=== PATIENT | male | born 1935 | race American Indian/Alaskan Native ===

== ENCOUNTER 2019-09-08 14:36 | Inpatient (IN) | payer OTHER, MEDICARE, BC ==
[~2019-09-08] VITALS: Ht 172.7 cm; Wt 106.6 kg
[~2019-09-08 14:36] MED LIST: ASPI81CH PO; DOCU100 PO; FOLI1 PO; GLIP10 PO; LISI20 PO; METF500 PO; Mag-G500 MG PO; OXYACE5T PO; SERT25 PO; Super B With V1 EACH PO; TRAM50 PO; Zantac150 MG PO
[2019-09-08 15:27] LABS: BASOPHILS ABSOLUTE AUTO 0.03 K/mm3 (0.00-0.23); BASOPHILS PERCENT AUTO 0 % (0-2); EOSINOPHILS PERCENT AUTO 1 % (0-6); Hematocrit 22.3 % (37.0-53.0); Hemoglobin 6.3 g/dL (13.5-17.5); IMMATURE GRAN ABSOLUTE AUTO 0.04 K/mm3 (0.00-0.10); IMMATURE GRAN PERCENT AUTO 1 % (0-1); LYMPHOCYTES ABSOLUTE AUTO 1.14 K/mm3 (0.84-5.20); LYMPHOCYTES PERCENT AUTO 14 % (21-46); MONOCYTES ABSOLUTE AUTO 0.67 K/mm3 (0.16-1.47); MONOCYTES PERCENT AUTO 8 % (4-13); Mean Corpuscular HGB 22.4 pg (26.0-34.0); Mean Corpuscular HGB Conc 28.3 g/dL (31.5-36.5); Mean Corpuscular Volume 79 fL (80-100); Mean Platelet Volume 9.4 fL (9.1-12.4); NEUTROPHILS ABSOLUTE AUTO 6.29 K/mm3 (1.96-9.15); NEUTROPHILS PERCENT AUTO 76 % (41-73); NRBC ABSOLUTE 0.06 K/mm3 (0.00-0.02); NRBC Auto 0.7 /100 WBC (0.0-0.2); Platelet Count 272 K/mm3 (150-400); RDW Standard Deviation 49.2 fL (35.1-46.3); Red Blood Cell Count 2.81 M/mm3 (4.30-5.90); White Blood Cell Count 8.27 K/mm3 (4.00-11.30)
[2019-09-08 15:47] LABS: Albumin, Blood 3.1 g/dL (3.4-5.0); Albumin/Globulin Ratio 0.8 (0.8-1.8); Bilirubin, Total 0.3 mg/dL (0.1-1.0); Calcium, Blood 8.3 mg/dL (8.5-10.1); Creatinine, Blood 2.83 mg/dL (0.60-1.20); Globulin, Blood 3.7 g/dL (2.2-4.0); Potassium, Blood 5.4 mmol/L (3.5-5.5); Total Protein, Blood 6.8 g/dL (6.4-8.2)
[2019-09-08] MEDS ORDERED: PRAMIPEXOLE D0.25 M1 PO (16:07)
[2019-09-08] MEDS ORDERED: Nifediac Cc60 MG PO (16:08)
[2019-09-08] MEDS ORDERED: Simvastatin40 MG PO (16:09)
[2019-09-08] MEDS ORDERED: Ropinirole HCl2 MG PO ×2 (16:10)
[2019-09-08] MEDS ORDERED: LOSA25 PO (16:11)
[2019-09-08] MEDS ORDERED: Ventolin/Prove6.7 GM INH (16:11)
[2019-09-08] MEDS ORDERED: STIOLTO RESPIMAT4 GM INH (16:12)
[2019-09-08] MEDS ORDERED: Aspir 8181 MG PO (16:12)
[2019-09-08] MEDS ORDERED: NOVOLOG FL100 UNIT/1 SC (16:14)
[2019-09-08] MEDS ORDERED: BASAGLAR K100 UNIT/1 SC (16:14)
[2019-09-08 16:31] LABS: International Normalized Ratio 1.15
[2019-09-08] MEDS ORDERED: CO Q-10 PO (17:07)
[2019-09-08] MEDS ORDERED: DOCU100 PO (17:08)
[2019-09-08] MEDS ORDERED: FERSU300 PO (17:09)
[2019-09-08] MEDS ORDERED: HYDCHL25 PO (17:11)
[2019-09-08] MEDS ORDERED: FURO20 PO (17:11)
[2019-09-08] MEDS ORDERED: NITR.4SL SL (17:13)
[2019-09-08] MEDS ORDERED: MELA3 PO (17:15)
--- NOTE | 2019-09-08 18:52 | NUR ---
PT ARRIVAL. PT ARRIVED VIA [place] [facility]. PT WAS ABLE TO SELF TRANSFER FROM [place] [facility] TO BED. PT BECAME SOB WITH THIS ACTIVITY. PT IS ON 4L NC WITH O2 SATS >93%, PT'S BASELINE IS RA. PT DENIES CHEST PAIN/PRESSURE AT THIS TIME. PT DENIES ABD PAIN AT THIS TIME. PT'S HR IS IN THE 40'S HE IS IN A JUNCTIONAL W/PVCS AND PACS. PT STATES THIS IS ABNORMAL FOR HIM PER THE PT "I HAVE ALWAY HAD A NORMAL HR". PT IS TO HAVE 2UNITS OF PRBC PER PROVIDER HE IS TO HAVE LASIX BETWEEN UNITS. WILL CONTINUE TO MONITOR.
--- NOTE | 2019-09-08 22:45 | NUR ---
PROVIDER CONTACTED PT WITH ELEVATED TROPONIN OF 0.554. PT DENIES CHEST PAIN AND DYSPNEA . REPORTS THAT HE IS FEELING MUCH BETTER THAN HE WAS PRIOR TO ARRIVAL. PROVIDER, BORIS ARCE, CONTACTED. PROVIDER TO DEPARTMENT TO REVIEW CHART, INITIAL EKG AND CURRENT TELEMETRY READING. PT CASE DISCUSSED AND DETERMINATION IS TO MONITOR CLOSELY AND REPEAT TROPONIN AT 0400. IF TROP CONTINUES TO ELEVATE, PLAN IS TO CYCLE TROPONINS Q8 UNTIL THEY START TO TREND DOWNWARD AND MONITOR FOR CHANGES IN PATIENT CONDITION. PT IS CURRENTLY RESTING COMFORTABLY IN BED AND ASSYMPTOMATIC. NURSE NOTIFY INPUT FOR VERBAL ORDERS. WILL CONTINUE WITH MONITORING.
[2019-09-09 00:16] LABS: Source, Urine Clean Catch
[2019-09-09 00:21] LABS: Blood, Urine Neg (Neg); Glucose Qualitative, Urine Neg (Neg); Ketones, Urine 1+ (Neg); Leukocyte Esterase, Urine 1+ (Neg); Nitrite, Urine Neg (Neg); Protein, Urine 3+ (Neg); Urobilinogen, Urine 1+ (Normal)
[2019-09-09 00:24] LABS: Appearance, Urine Clear (Clear); Bilirubin, Urine 1+ (Neg); Color, Urine Amber (P-Yellow)
[2019-09-09 00:30] LABS: Red Blood Cells, Urine 0-2 /hpf (0-2); Squamous Epithelial Cells Not Seen /hpf (Few)
[2019-09-09 00:31] LABS: Bacteria Mod /hpf; Hyaline Casts 25-50 /lpf (0-2)
[2019-09-09 04:39] LABS: BASOPHILS ABSOLUTE AUTO 0.03 K/mm3 (0.00-0.23); BASOPHILS PERCENT AUTO 0 % (0-2); EOSINOPHILS ABSOLUTE AUTO 0.11 K/mm3 (0.00-0.68); EOSINOPHILS PERCENT AUTO 2 % (0-6); Hematocrit 26.1 % (37.0-53.0); Hemoglobin 7.9 g/dL (13.5-17.5); IMMATURE GRAN ABSOLUTE AUTO 0.03 K/mm3 (0.00-0.10); IMMATURE GRAN PERCENT AUTO 0 % (0-1); LYMPHOCYTES ABSOLUTE AUTO 1.01 K/mm3 (0.84-5.20); LYMPHOCYTES PERCENT AUTO 15 % (21-46); MONOCYTES ABSOLUTE AUTO 0.33 K/mm3 (0.16-1.47); MONOCYTES PERCENT AUTO 5 % (4-13); Mean Corpuscular HGB 24.2 pg (26.0-34.0); Mean Corpuscular HGB Conc 30.3 g/dL (31.5-36.5); Mean Corpuscular Volume 80 fL (80-100); Mean Platelet Volume 9.3 fL (9.1-12.4); NEUTROPHILS ABSOLUTE AUTO 5.21 K/mm3 (1.96-9.15); NEUTROPHILS PERCENT AUTO 78 % (41-73); NRBC ABSOLUTE 0.03 K/mm3 (0.00-0.02); NRBC Auto 0.4 /100 WBC (0.0-0.2); Platelet Count 222 K/mm3 (150-400); RDW Standard Deviation 50.2 fL (35.1-46.3); Red Blood Cell Count 3.27 M/mm3 (4.30-5.90); White Blood Cell Count 6.72 K/mm3 (4.00-11.30)
[2019-09-09 05:05] LABS: Magnesium, Blood 2.5 mg/dL (1.6-2.4)
[2019-09-09 05:06] LABS: Albumin/Globulin Ratio 0.8 (0.8-1.8); Bilirubin, Total 0.5 mg/dL (0.1-1.0); Bun/Creatinine Ratio 19.3 (12.0-20.0); Calcium, Blood 8.1 mg/dL (8.5-10.1); Creatinine, Blood 2.74 mg/dL (0.60-1.20); Globulin, Blood 3.6 g/dL (2.2-4.0); Potassium, Blood 4.3 mmol/L (3.5-5.5); Total Protein, Blood 6.6 g/dL (6.4-8.2)
[2019-09-09 05:10] LABS: Troponin I 0.539 ng/mL (0.000-0.040)
--- NOTE | 2019-09-09 06:22 | NUR ---
SHIFT SUMMARY PT HAS REMAINED AOX4 THROUGHOUT SHIFT. VSS. PLEASANT AND COOPERATIVE WITH CARE. PT CONTINUES TO AMBULATE WITH ONE PERSON ASSIST TO RESTROOM. PT GIVEN TWO UNITS PRBCs THROUGHOUT THE NIGHT WITH ONE DOSE OF LASIX GIVEN IN BETWEEN UNITS PER PHYSICIAN ORDERS. PT TOLERATED WELL, NO TRANSFUSION REACTION, NO CHANGES TO LUNG SOUNDS. O2 SATS HAVE REMAINED >90% ON 2L VIA NASAL CANNULA. PT REPORTS IMPROVEMENT IN RESPIRATORY EFFORT. PT BECAME DYSPNEIC ON EXERTION, BUT O2 SATS REMAINED >90% WITH DYSPNEA. TROPONIN STARTING TO TREND DOWN THIS AM, NO FURTHER LAB DRAWS PLACED, PER PROVIDER VERBAL ORDER. PT PROTONIX DRIP DISCONTINUED AND BID ORDERS TO BE FOLLOWED PER ADMITTING PHYSICIAN. NO OTHER CHANGES NOTED FROM INITIAL ASSESSMENT. WILL CONTINUE TO MONITOR AND REPORT TO ONCOMING SHIFT RN. BED IN LOW POSITION, CALL LIGHT IN REACH.
--- NOTE | 2019-09-09 09:00 | NUR ---
PARTIAL ECHO COMPLETE
--- NOTE | 2019-09-09 18:37 | NUR ---
SHIFT SUMMARY PT REPORTED AN OVERALL "FEELING BETTER" TODAY. HE FEELS THAT THE BLOOD TRANSFUSION MADE A DIFFERENCE. INITIALLY PT WAS NPO WITH LOWER CBG'S AND IVF WERE ORDERED BY HOSPITALIST TO KEEP CBG FROM DROPPING TO LOW. DR PRUITT CALLED AND CHANGED PT'S DIET ORDER TO CLEARS AND TO NOT START THE IVF. DR PRUITT WAS ABLE TO SEE PT'S THIS EVENING. PT IS PLANNED TO HAVE ENDOSCOPE TOMORROW AFTERNOON/EVENING. PT IS TO BE MADE NPO AFTER LUNCH TOMORROW 09/10. DR LARIOS FROM CARDIOLOGY ALSO VISITED PT THIS EVENING R/T ELEVATED TROPONINS, CURRENT PLAN IS TO HAVE PT FOLLOW-UP OUTPATIENT WITH CARDIOLOGY. TELEMETRY SHOWED PT TO BE IN SINUS PHILIP 50'S TO SINUS RHYTHM. PT HAD INCREASED SBP'S TODAY AND PRN HYDRALAZINE WAS ADDED IN. PT HAD ENOUGH ENERGY THIS EVENING TO AMBULATE IN THE HALLS.
--- NOTE | 2019-09-09 20:30 | NUR ---
PT RESTING IN BED. DENIES PAIN, N/V AND SOB. HELD LANTUS DUE TO CBG 108. PT STATES HE IS NOT USUALLY THAT LOW AND HE HAD EATEN A FULL DINNER PLUS HIS CLEAR LIQUID TRAY. WILL ONLY BE ON CLEAR LIQUIDS UNTIL TOMORROW AT NOON. NO SIGN OF DISTRESS.
--- NOTE | 2019-09-10 00:30 | NUR ---
PT UP WALKING IN THE SAINZ INDEP. NO SIGN OF DISTRESS.
[2019-09-10 04:21] LABS: BASOPHILS ABSOLUTE AUTO 0.04 K/mm3 (0.00-0.23); BASOPHILS PERCENT AUTO 1 % (0-2); EOSINOPHILS ABSOLUTE AUTO 0.41 K/mm3 (0.00-0.68); EOSINOPHILS PERCENT AUTO 6 % (0-6); Hematocrit 29.8 % (37.0-53.0); Hemoglobin 8.5 g/dL (13.5-17.5); IMMATURE GRAN ABSOLUTE AUTO 0.03 K/mm3 (0.00-0.10); IMMATURE GRAN PERCENT AUTO 1 % (0-1); LYMPHOCYTES ABSOLUTE AUTO 0.66 K/mm3 (0.84-5.20); LYMPHOCYTES PERCENT AUTO 10 % (21-46); MONOCYTES PERCENT AUTO 6 % (4-13); Mean Corpuscular HGB 23.2 pg (26.0-34.0); Mean Corpuscular HGB Conc 28.5 g/dL (31.5-36.5); Mean Corpuscular Volume 81 fL (80-100); Mean Platelet Volume 9.3 fL (9.1-12.4); NEUTROPHILS ABSOLUTE AUTO 4.85 K/mm3 (1.96-9.15); NEUTROPHILS PERCENT AUTO 76 % (41-73); NRBC ABSOLUTE 0.03 K/mm3 (0.00-0.02); NRBC Auto 0.5 /100 WBC (0.0-0.2); Platelet Count 228 K/mm3 (150-400); RDW Coefficient Variation 20.1 % (11.7-14.2); RDW Standard Deviation 53.1 fL (35.1-46.3); Red Blood Cell Count 3.66 M/mm3 (4.30-5.90); White Blood Cell Count 6.39 K/mm3 (4.00-11.30)
[2019-09-10 04:43] LABS: Albumin, Blood 2.8 g/dL (3.4-5.0); Albumin/Globulin Ratio 0.8 (0.8-1.8); Bilirubin, Total 0.4 mg/dL (0.1-1.0); Bun/Creatinine Ratio 21.4 (12.0-20.0); Calcium, Blood 8.1 mg/dL (8.5-10.1); Creatinine, Blood 2.1 mg/dL (0.60-1.20); Globulin, Blood 3.6 g/dL (2.2-4.0); Potassium, Blood 3.5 mmol/L (3.5-5.5); Total Protein, Blood 6.4 g/dL (6.4-8.2)
--- NOTE | 2019-09-10 06:15 | NUR ---
SUMMARY PT RESTING IN BED. A/O X4. INDEP IN ROOM. NO SIGNS OF BLEEDING DURING THIS SHIFT. GAVE HYDRALAZINE 1X FOR HTN. NO SIGN OF DISTRESS.
--- NOTE | 2019-09-10 08:37 | NUR ---
Pt denies any bowel movements, tolerated cle3ar liquid breakfast and has no complaints this morning, other than painful IV on the left wrist. This was discontinued when it was also noted that it was leaking when attempted to flush the IV with normal saline.
[2019-09-10 10:07] LABS: HBSAG SCREEN Negative (Negative); HEP A AB, IGM Negative (Negative); HEP B CORE AB, IGM Negative (Negative); HEP C VIRUS AB 0.1 (0.0-0.9)
[2019-09-10 11:02] LABS: Percent Saturation 5.2 % (20.0-50.0)
--- NOTE | 2019-09-10 16:42 | NUR ---
09/10/19 1642 Joselyn Keys MAC CASE WITH DR. POLO. SEE ANETHESIA RECORD FOR CARE
--- NOTE | 2019-09-10 17:22 | NUR ---
The pt returned from the EGD, escorted by THAD Ocasio. Devan is awake, oriented, and conversant. Stand by assistance for ambulation into the bathroom to have a bm. No c/o pain or other discomfort.
--- NOTE | 2019-09-10 18:28 | NUR ---
The pt had no pain or discomfort following the EGD. Dr. Robertson here to see him soon after his return to PCU 6. The pt stated he had an urge to have a bowel movement, but did not. No difficulty ambulating to the bathroom and back to bed. Sitting on the side of the bed, eating dinner this evening and tolerating a cardiac/ADA diet well.
[2019-09-11 03:56] LABS: Hematocrit 32.9 % (37.0-53.0); Hemoglobin 9.4 g/dL (13.5-17.5); Mean Corpuscular HGB Conc 28.6 g/dL (31.5-36.5); Mean Corpuscular Volume 80 fL (80-100); Platelet Count 239 K/mm3 (150-400); RDW Coefficient Variation 20.2 % (11.7-14.2); RDW Standard Deviation 55.7 fL (35.1-46.3); Red Blood Cell Count 4.09 M/mm3 (4.30-5.90); White Blood Cell Count 6.06 K/mm3 (4.00-11.30)
[2019-09-11 04:16] LABS: Albumin, Blood 3.1 g/dL (3.4-5.0); Anion Gap 6 mmol/L (6-16); Blood Urea Nitrogen 33 mg/dL (8-24); Bun/Creatinine Ratio 19.3 (12.0-20.0); CO2, Blood 27 mmol/L (21-32); Calcium, Blood 8.7 mg/dL (8.5-10.1); Chloride, Blood 110 mmol/L (98-108); Creatinine, Blood 1.71 mg/dL (0.60-1.20); Glomerular Filtration Rate 41 (60-); Glucose, Blood 90 mg/dL (70-99); Potassium, Blood 3.7 mmol/L (3.5-5.5); Sodium, Blood 143 mmol/L (136-145)
--- NOTE | 2019-09-11 06:55 | NUR ---
a+o, able to make needs known, wants to change rls medication, call light in reach, able to make needs known, continued to monitor and treat until bsr was shared with pt and day staff, deisy waters locked
[2019-09-11 13:14] LABS: Albumin, Blood 3.2 g/dL (3.4-5.0); Albumin/Globulin Ratio 0.8 (0.8-1.8); Bilirubin, Direct 0.2 mg/dL (0.0-0.3); Bilirubin, Indirect 0.2 mg/dL (0.1-0.7); Bilirubin, Total 0.4 mg/dL (0.1-1.0); Globulin, Blood 4.2 g/dL (2.2-4.0); Total Protein, Blood 7.4 g/dL (6.4-8.2)
--- NOTE | 2019-09-11 17:37 | NUR ---
SHIFT SUMMARY PT'S STATUS CHANGED THIS AFTERNOON FROM PCU TO MEDICAL. PT COMPLETED 2ND PORTION ON LEXISCAN TODAY. PT BECAME HYPERTENSIVE THIS AFTERNOON AND WAS TREATED ONCE WITH PRN HYDRALAZINE. PT C/O HIS LEGS FEELING VERY RESTLESS AND HAS BEEN AMBULATIN IN THE HALLS INDEPENTLY TO HELP. PT DID RECEIVE HIS NORMAL RESTLESS LEG MEDICATIONS. PT HAS TOLERATED AMBULATION WITHOUT ANY COMPLAINTS. GI SAW THIS AFTERNOON AND STATED, PT IS OKAY TO D/C FROM THEIR STANDPOINT AND TO HAVE HIM FOLLOW UP IN COUPLE OF WEEKS. TELEMETRY HAS SHOWN PT IN A SINUS RHYTHM THROUGHOUT THE DAY. PT VOICED HIS WISHES TO GO HOME TODAY, DISCUSSED WITH HOSPITALIST AND PLANS TO D/C PT TOMORROW. UPDATED PT ON HOSPITALIST WISHES.
--- NOTE | 2019-09-12 07:42 | NUR ---
SUMMARY PT SLEPT POORLY. THIS AM DID FINALLY GET SOME SLEEP. W/A TALKS OF SON THAT ON Saturday, WHICH MAY HAVE CAUSED POOR SLEEP.PT HOPING FOR DISCHARGE HOME TODAY.
[2019-09-12 09:14] LABS: Albumin, Blood 3.2 g/dL (3.4-5.0); Albumin/Globulin Ratio 0.8 (0.8-1.8); Bilirubin, Total 0.4 mg/dL (0.1-1.0); Bun/Creatinine Ratio 20.1 (12.0-20.0); Calcium, Blood 8.8 mg/dL (8.5-10.1); Creatinine, Blood 1.79 mg/dL (0.60-1.20); Globulin, Blood 4.1 g/dL (2.2-4.0); Potassium, Blood 3.9 mmol/L (3.5-5.5); Total Protein, Blood 7.3 g/dL (6.4-8.2)
[2019-09-12] MEDS ORDERED: ASCO500 PO (11:26)
--- NOTE | 2019-09-12 12:04 | NUR ---
DISCHARGE INSTRUCTIONS GONE OVER WITH PT. INSTRUCTED PT ON FOLLOW VISITS WHAT HE NEEDS TO BRING AND DO FOR THE FOLLOW UPS. INSTRUCTED PT ON HOME MEDICATIONS INCLUDING CHANGES TO MEDS. PT STATED UNDERSTANDING. ALL BELONGINGS GATHERED AND GIVEN TO PT. PT AMUBLATED OUT OF FACILITY ESCORTED BY FAMILY.
[2019-09-16] MEDS ORDERED: ROPINIROLE HCL2 M1 PO (22:55)
[2019-09-18] MEDS ORDERED: NIFE90ER PO (15:19)
== END 2019-09-12 12:00 | disposition home or self-care (01) | DRG 377 ==
LOC: ER 14:36 → PCU 16:29
PROVIDERS: Emergency Medicine; Internal Medicine; Student in an Organized Health Care Education/Training Program; ADMIT Family Medicine
PROC: 0DB68ZX Excision of Stomach, Via Natural or Artificial Opening Endoscopic, Diagnostic (ICD-10-PCS; 2019-09-10)
PROC: 0DB98ZX Excision of Duodenum, Via Natural or Artificial Opening Endoscopic, Diagnostic (ICD-10-PCS; principal; 2019-09-10 12:45)
PROC: 0DB78ZX Excision of Stomach, Pylorus, Via Natural or Artificial Opening Endoscopic, Diagnostic (ICD-10-PCS; 2019-09-10 12:45)
PROC: 30233N1 Transfusion of Nonautologous Red Blood Cells into Peripheral Vein, Percutaneous Approach (ICD-10-PCS; 2019-09-11)
DX: K92.2 Gastrointestinal hemorrhage, unspecified (principal); I50.33 Acute on chronic diastolic (congestive) heart failure; I21.A1 Myocardial infarction type 2; N17.9 Acute kidney failure, unspecified; I13.0 Hypertensive heart and chronic kidney disease with heart failure and stage 1 through stage 4 chronic kidney disease, or unspecified chronic kidney disease; E11.22 Type 2 diabetes mellitus with diabetic chronic kidney disease; N18.3 Chronic kidney disease, stage 3 (moderate); D63.1 Anemia in chronic kidney disease; Z79.4 Long term (current) use of insulin; D50.0 Iron deficiency anemia secondary to blood loss (chronic); R74.0 Nonspecific elevation of levels of transaminase and lactic acid dehydrogenase [LDH]; G25.81 Restless legs syndrome; E11.42 Type 2 diabetes mellitus with diabetic polyneuropathy; I25.10 Atherosclerotic heart disease of native coronary artery without angina pectoris; I27.20 Pulmonary hypertension, unspecified; J44.9 Chronic obstructive pulmonary disease, unspecified
CPT/HCPCS: 36415; 36430; 71046; 76705; 78452; 80053; 80069; 80074; 80076; 81001; 82272; 82607; 82728; 82746; 82947; 83540; 83550; 83735; 83880; 84484; 85025; 85027; 85610; 85730; 86850; 86900; 86901; 86923; 87086; 88305; 88342; 93005; 93010; 93017; 93308; 93321; 94640; 94760; 96365; 96366; 96376; 97165; 99285-25; A9500; C9113; J0360; J0706; J1815; J1940; J2250; J2704; J2785; J7030; J7120; P9016

== ENCOUNTER 2020-11-25 14:26 | Emergency (ER) | payer OTHER, BC ==
[~2020-11-25] VITALS: Ht 172.7 cm; Wt 106.1 kg
[~2020-11-25 14:26] MED LIST changes: +ASCO500 PO; +BASAGLAR K100 UNIT/1 SC; +CO Q-10 PO; +FERSU300 PO; +HYDCHL25 PO; +MELA3 PO; +NITR.4SL SL; +NOVOLOG FL100 UNIT/1 SC; +Nifediac Cc60 MG PO; +ROPINIROLE HCL2 M1 PO; +Ropinirole HCl2 MG PO; +Simvastatin40 MG PO
[2020-11-25 15:18] LABS: BASOPHILS ABSOLUTE AUTO 0.03 K/mm3 (0.00-0.23); BASOPHILS PERCENT AUTO 1 % (0-2); EOSINOPHILS ABSOLUTE AUTO 0.08 K/mm3 (0.00-0.68); EOSINOPHILS PERCENT AUTO 2 % (0-6); Hematocrit 26.1 % (37.0-53.0); Hemoglobin 7.5 g/dL (13.5-17.5); IMMATURE GRAN ABSOLUTE AUTO 0.01 K/mm3 (0.00-0.10); IMMATURE GRAN PERCENT AUTO 0 % (0-1); LYMPHOCYTES ABSOLUTE AUTO 0.34 K/mm3 (0.84-5.20); LYMPHOCYTES PERCENT AUTO 8 % (21-46); MONOCYTES ABSOLUTE AUTO 0.35 K/mm3 (0.16-1.47); MONOCYTES PERCENT AUTO 8 % (4-13); Mean Corpuscular HGB 26.1 pg (26.0-34.0); Mean Corpuscular HGB Conc 28.7 g/dL (31.5-36.5); Mean Corpuscular Volume 91 fL (80-100); Mean Platelet Volume 9.3 fL (9.1-12.4); NEUTROPHILS ABSOLUTE AUTO 3.39 K/mm3 (1.96-9.15); NEUTROPHILS PERCENT AUTO 81 % (41-73); Platelet Count 169 K/mm3 (150-400); RDW Coefficient Variation 15.2 % (11.7-14.2); RDW Standard Deviation 50.6 fL (35.1-46.3); Red Blood Cell Count 2.87 M/mm3 (4.30-5.90)
[2020-11-25] MEDS ORDERED: OMEP20ER PO (15:25)
[2020-11-25] MEDS ORDERED: PRAMIPEXOLE D0.25 M1 PO (15:27)
[2020-11-25] MEDS ORDERED: ISOSORBIDE MONO60 MG PO (15:28)
[2020-11-25] MEDS ORDERED: Aspir 8181 MG PO (15:29)
[2020-11-25] MEDS ORDERED: LOSA25 PO (15:29)
[2020-11-25] MEDS ORDERED: DOXAZOSIN MESYLA2 MG PO (15:30)
[2020-11-25] MEDS ORDERED: NIFE60ER PO (15:31)
[2020-11-25] MEDS ORDERED: ATORVASTATIN CA20 MG PO (15:32)
[2020-11-25] MEDS ORDERED: FUROSEMIDE20 MG PO (15:33)
[2020-11-25] MEDS ORDERED: FURO20 PO (15:33)
[2020-11-25] MEDS ORDERED: ALBU2.5V5 NEB (15:34)
[2020-11-25] MEDS ORDERED: Ventolin/Prove6.7 GM INH (15:36)
[2020-11-25] MEDS ORDERED: STIOLTO RESPIMAT4 G1 INH (15:37)
[2020-11-25 15:44] LABS: Bun/Creatinine Ratio 22.7 (12.0-20.0); Calcium, Blood 8.1 mg/dL (8.5-10.1); Creatinine, Blood 1.94 mg/dL (0.60-1.20); Potassium, Blood 4.3 mmol/L (3.5-5.5); Troponin I 0.069 ng/mL (0.000-0.040)
== END 2020-11-25 16:52 | disposition home or self-care (01) ==
LOC: ER 14:26
PROVIDERS: Emergency Medicine
DX: E16.2 Hypoglycemia, unspecified (principal); D53.9 Nutritional anemia, unspecified; I13.0 Hypertensive heart and chronic kidney disease with heart failure and stage 1 through stage 4 chronic kidney disease, or unspecified chronic kidney disease; E11.22 Type 2 diabetes mellitus with diabetic chronic kidney disease; N18.30 Chronic kidney disease, stage 3 unspecified; I50.9 Heart failure, unspecified; J44.9 Chronic obstructive pulmonary disease, unspecified; E78.5 Hyperlipidemia, unspecified; E11.42 Type 2 diabetes mellitus with diabetic polyneuropathy; Z79.82 Long term (current) use of aspirin; Z79.899 Other long term (current) drug therapy; Z79.4 Long term (current) use of insulin
CPT/HCPCS: 80048; 84484; 85025; 93005; 93010; 99284-25

== ENCOUNTER 2020-12-06 01:17 | Emergency (ER) | payer OTHER, BC ==
[~2020-12-06] VITALS: Ht 172.7 cm; Wt 95.7 kg
[~2020-12-06 01:17] MED LIST changes: +ALBU2.5V5 NEB; +ATORVASTATIN CA20 MG PO; +Aspir 8181 MG PO; +DOXAZOSIN MESYLA2 MG PO; +FURO20 PO; +FUROSEMIDE20 MG PO; +ISOSORBIDE MONO60 MG PO; +LOSA25 PO; +NIFE60ER PO; +OMEP20ER PO; +PRAMIPEXOLE D0.25 M1 PO; +STIOLTO RESPIMAT4 G1 INH; +Ventolin/Prove6.7 GM INH
[2020-12-06 02:58] LABS: BASOPHILS ABSOLUTE AUTO 0.03 K/mm3 (0.00-0.23); BASOPHILS PERCENT AUTO 1 % (0-2); EOSINOPHILS ABSOLUTE AUTO 0.18 K/mm3 (0.00-0.68); EOSINOPHILS PERCENT AUTO 4 % (0-6); Hematocrit 26.1 % (37.0-53.0); Hemoglobin 7.6 g/dL (13.5-17.5); IMMATURE GRAN ABSOLUTE AUTO 0.01 K/mm3 (0.00-0.10); IMMATURE GRAN PERCENT AUTO 0 % (0-1); LYMPHOCYTES ABSOLUTE AUTO 0.64 K/mm3 (0.84-5.20); LYMPHOCYTES PERCENT AUTO 13 % (21-46); MONOCYTES ABSOLUTE AUTO 0.71 K/mm3 (0.16-1.47); MONOCYTES PERCENT AUTO 14 % (4-13); Mean Corpuscular HGB 25.8 pg (26.0-34.0); Mean Corpuscular HGB Conc 29.1 g/dL (31.5-36.5); Mean Corpuscular Volume 89 fL (80-100); NEUTROPHILS ABSOLUTE AUTO 3.35 K/mm3 (1.96-9.15); NEUTROPHILS PERCENT AUTO 68 % (41-73); Platelet Count 195 K/mm3 (150-400); RDW Coefficient Variation 14.7 % (11.7-14.2); RDW Standard Deviation 47.9 fL (35.1-46.3); Red Blood Cell Count 2.95 M/mm3 (4.30-5.90); White Blood Cell Count 4.92 K/mm3 (4.00-11.30)
[2020-12-06 03:11] LABS: Bun/Creatinine Ratio 20.6 (12.0-20.0); Calcium, Blood 8.5 mg/dL (8.5-10.1); Creatinine, Blood 2.09 mg/dL (0.60-1.20); Potassium, Blood 4.7 mmol/L (3.5-5.5); Troponin I 0.107 ng/mL (0.000-0.040)
== END 2020-12-06 06:50 | disposition home or self-care (01) ==
LOC: ER 01:17
PROVIDERS: Student in an Organized Health Care Education/Training Program
DX: R55 Syncope and collapse (principal); R00.1 Bradycardia, unspecified; D64.9 Anemia, unspecified; I11.0 Hypertensive heart disease with heart failure; I50.9 Heart failure, unspecified; E11.9 Type 2 diabetes mellitus without complications; E78.5 Hyperlipidemia, unspecified; Z79.899 Other long term (current) drug therapy; Z79.82 Long term (current) use of aspirin
CPT/HCPCS: 36415; 80048; 84484; 85025; 93005; 93010; 99284-25

== ENCOUNTER 2020-12-12 13:16 | Inpatient (IN) | payer OTHER, MEDICARE, BC ==
[~2020-12-12] VITALS: Ht 172.7 cm; Wt 101.7 kg
[2020-12-12 14:58] LABS: Hematocrit 25.5 % (37.0-53.0); Hemoglobin 7.7 g/dL (13.5-17.5); Mean Corpuscular HGB 26.2 pg (26.0-34.0); Mean Corpuscular HGB Conc 30.2 g/dL (31.5-36.5); Mean Corpuscular Volume 87 fL (80-100); Mean Platelet Volume 10.4 fL (9.1-12.4); NRBC ABSOLUTE 0.02 K/mm3 (0.00-0.02); NRBC Auto 0.4 /100 WBC (0.0-0.2); Platelet Count 218 K/mm3 (150-400); RDW Coefficient Variation 15.5 % (11.7-14.2); RDW Standard Deviation 48.1 fL (35.1-46.3); Red Blood Cell Count 2.94 M/mm3 (4.30-5.90); White Blood Cell Count 5.65 K/mm3 (4.00-11.30)
[2020-12-12 15:22] LABS: BASOPHILS ABSOLUTE MAN 0.05 K/mm3 (0.00-0.23); BASOPHILS PERCENT MAN 1 % (0-2); EOSINOPHILS ABSOLUTE MAN 0.11 K/mm3 (0.00-0.68); EOSINOPHILS PERCENT MAN 2 % (0-6); LYMPHOCYTES PERCENT MAN 9 % (21-46); MONOCYTES ABSOLUTE MAN 0.33 K/mm3 (0.16-1.47); MONOCYTES PERCENT MAN 6 % (4-13); NEUTROPHILS ABSOLUTE MAN 4.63 K/mm3 (1.96-9.15); SEG NEUTROPHILS PERCENT MAN 82 % (41-73); TOTAL CELLS COUNTED 100
[2020-12-12] MEDS ORDERED: BASAGLAR K100 UNIT/1 (15:29)
[2020-12-12] MEDS ORDERED: STRIVERDI RESPIM4 G1 (15:29)
[2020-12-12] MEDS ORDERED: POTA10T PO (15:30)
[2020-12-12 15:52] LABS: Free Thyroxine 1.06 ng/dL (0.70-1.60); Magnesium, Blood 3.3 mg/dL (1.6-2.4); Thyroid Stimulating Hormone 1.55 uIU/mL (0.360-4.800); Troponin I 0.09 ng/mL (0.000-0.040)
[2020-12-12 16:15] LABS: Source, Urine Voided
[2020-12-12 16:27] LABS: Percent Saturation 3.7 % (20.0-50.0)
[2020-12-12 16:44] LABS: Appearance, Urine Clear (Clear); Bilirubin, Urine Neg (Neg); Blood, Urine Neg (Neg); Color, Urine Yellow (P-Yellow); Glucose Qualitative, Urine Neg (Neg); Ketones, Urine Neg (Neg); Leukocyte Esterase, Urine Neg (Neg); Nitrite, Urine Neg (Neg); Protein, Urine 2+ (Neg); Specific Gravity, Urine 1.015 (1.003-1.022); Urobilinogen, Urine NORM (Normal)
[2020-12-12 17:02] LABS: Bacteria Few /hpf; Red Blood Cells, Urine 0-2 /hpf (0-2); Squamous Epithelial Cells Few /hpf (Few)
[2020-12-12 18:26] LABS: Albumin, Blood 3.2 g/dL (3.4-5.0); Anion Gap 11 mmol/L (6-16); Blood Urea Nitrogen 88 mg/dL (8-24); CO2, Blood 19 mmol/L (21-32); Calcium, Blood 8.5 mg/dL (8.5-10.1); Chloride, Blood 110 mmol/L (98-108); Creatinine, Blood 3.82 mg/dL (0.60-1.20); Glomerular Filtration Rate 16 (60-); Glucose, Blood 67 mg/dL (70-99); Potassium, Blood 5.4 mmol/L (3.5-5.5); Sodium, Blood 140 mmol/L (136-145)
[2020-12-12] MEDS ORDERED: Vitamin D2000 UNIT PO (21:02)
[2020-12-12] MEDS ORDERED: Vitamin C100 MG (21:03)
[2020-12-12] MEDS ORDERED: CLON.1 PO (21:05)
[2020-12-12] MEDS ORDERED: DOCU100 PO (21:06)
[2020-12-12] MEDS ORDERED: FERSU300 PO (21:07)
[2020-12-12] MEDS ORDERED: HYDRA50 PO (21:15)
[2020-12-12] MEDS ORDERED: HYDROCORTISONE PR (21:15)
[2020-12-12] MEDS ORDERED: LOSA25 PO (21:16)
[2020-12-13] MEDS ORDERED: ADALAT CC60 MG PO (00:26)
[2020-12-13] MEDS ORDERED: NITR.4SL SL (00:27)
[2020-12-13] MEDS ORDERED: ASPI81CH PO (00:31)
[2020-12-13] MEDS ORDERED: COENZYME Q-1030 MG (00:32)
[2020-12-13 03:09] LABS: BASOPHILS ABSOLUTE AUTO 0.02 K/mm3 (0.00-0.23); BASOPHILS PERCENT AUTO 0 % (0-2); EOSINOPHILS ABSOLUTE AUTO 0.05 K/mm3 (0.00-0.68); EOSINOPHILS PERCENT AUTO 1 % (0-6); Hemoglobin 7.6 g/dL (13.5-17.5); IMMATURE GRAN ABSOLUTE AUTO 0.02 K/mm3 (0.00-0.10); IMMATURE GRAN PERCENT AUTO 0 % (0-1); LYMPHOCYTES ABSOLUTE AUTO 0.67 K/mm3 (0.84-5.20); LYMPHOCYTES PERCENT AUTO 14 % (21-46); MONOCYTES PERCENT AUTO 15 % (4-13); Mean Corpuscular HGB 26.2 pg (26.0-34.0); Mean Corpuscular HGB Conc 30.4 g/dL (31.5-36.5); Mean Corpuscular Volume 86 fL (80-100); Mean Platelet Volume 10.1 fL (9.1-12.4); NEUTROPHILS ABSOLUTE AUTO 3.32 K/mm3 (1.96-9.15); NEUTROPHILS PERCENT AUTO 70 % (41-73); Platelet Count 218 K/mm3 (150-400); RDW Coefficient Variation 15.6 % (11.7-14.2); RDW Standard Deviation 48.2 fL (35.1-46.3); White Blood Cell Count 4.78 K/mm3 (4.00-11.30)
[2020-12-13 03:25] LABS: Anion Gap 8 mmol/L (6-16); Blood Urea Nitrogen 81 mg/dL (8-24); Bun/Creatinine Ratio 23.6 (12.0-20.0); CO2, Blood 23 mmol/L (21-32); Calcium, Blood 8.3 mg/dL (8.5-10.1); Chloride, Blood 111 mmol/L (98-108); Creatinine, Blood 3.43 mg/dL (0.60-1.20); Glomerular Filtration Rate 18 (60-); Glucose, Blood 97 mg/dL (70-99); Magnesium, Blood 3.3 mg/dL (1.6-2.4); Phosphorus, Blood 5.2 mg/dL (2.5-4.9); Potassium, Blood 4.8 mmol/L (3.5-5.5); Sodium, Blood 142 mmol/L (136-145)
--- NOTE | 2020-12-13 05:01 | NUR ---
SHIFT SUMMARY PT ALERT AND ORIENTED. VS STABLE. O2 SATS REMAIN ABOVE 90% ON HOME CPAP. BP STABLE. HR SINUS PHILIP DROPPING LOW 35. PT ASYMPTOMATIC WITH LOW HR. PT DENIES ANY PAIN. ABLE TO URINATE USING URINAL, BUT INCONTINENT AT TIMES. ATTENDS IN PLACE. PT ABLE TO AMBULATE TO BATHROOM WITH SBA. SODIUM BICARB INFUSING PER ORDERS. WILL CONTINUE TO MONITOR AND REPORT TO ONCOMING RN. CALL LIGHT IN REACH .
[2020-12-13 17:13] LABS: International Normalized Ratio 1.21; Prothrombin Time Results 12.8 Sec (9.7-11.5)
--- NOTE | 2020-12-13 18:24 | NUR ---
PT SUMMARY: PT HAD NO COMPLAINS THIS AM, VITALS HAS BEEN STABLE. AFTER LUNCH PT TOOK A WALK AROUND THE UNIT WITH THE PCT AND HAD A VISITOR THEREAFTER, PT ALL OF A SUDDEN FELT AN EXCRUCIATING/PRESSURE PAIN ON LEFT ARM DOWN TO HANDS, PT DENIES ANY CHEST PAIN, LEFT ARM APPEARS DUSKY/PALE, FAINT PULSE NOTED, PT WAS ABLE TO MOVE HANDS BUT WITH AN INCREASING PAIN, DR BEAN MADE AWARE ARTERIAL AND VENOUS DUPLEX OF LEFT UPPER EXT ORDERED, PT HAS AN OCCLUSION/THROMBUS ON LEFT BRACHIAL ARTERY, DR KNIGHT IS CONSULTED PT FOR PROCEDURE IN AM TO KEEP NPO AFTER MIDNIGHT, HEPARIN GTT STARTED WELL AT 15U/KG/HR. PT WAS GIVEN FENTANYL IV 25MCG AND WAS EFFECTIVE. PT NOW RESTING IN BED EATING DINNER PT WAS ADVISED TO SIT UP RIGHT FOR GRVAITY FLOW PER DR JERNIGAN PA RECOMMENDATION. NO ISSUES AT THIS TIME, WILL REPORT TO ONCOMING SHIFT
[2020-12-14 04:15] LABS: Hematocrit 23.9 % (37.0-53.0); Hemoglobin 7.4 g/dL (13.5-17.5)
[2020-12-14 04:28] LABS: Anion Gap 9 mmol/L (6-16); Blood Urea Nitrogen 66 mg/dL (8-24); Bun/Creatinine Ratio 25.7 (12.0-20.0); CO2, Blood 22 mmol/L (21-32); Chloride, Blood 113 mmol/L (98-108); Creatinine, Blood 2.57 mg/dL (0.60-1.20); Glomerular Filtration Rate 26 (60-); Glucose, Blood 101 mg/dL (70-99); Magnesium, Blood 2.9 mg/dL (1.6-2.4); Phosphorus, Blood 4.3 mg/dL (2.5-4.9); Potassium, Blood 4.2 mmol/L (3.5-5.5); Sodium, Blood 144 mmol/L (136-145)
--- NOTE | 2020-12-14 05:37 | NUR ---
SHIFT SUMMARY PATIENT IS ALERT AND ORIENTED. CALLS APPROPRIATELY. SBA TO THE BATHROOM. MEDICATED PER EMAR FOR LUE PAIN, MEDICATED FOR HIGH BLOOD PRESSURE PER EMAR. PATIENT SLEPT MOST THE NIGHT. 02 SATS >90% ON 2L VIA NC. CALL LIGHT IN REACH.
--- NOTE | 2020-12-14 08:40 | NUR ---
AM NOTE PT A&Ox4; CALM AND COOPERATIVE WITH CARE. PT RESTING IN BED, UP SBA IN ROOM. PT DENIES PAIN, CHEST PAIN, SOB, NAUSEA AND DIZZINESS. PT REPORTS NUMB/TINGLING TO LUE; STATES NEW OF YESTERDAY "WHEN THEY FOUND THE BLOOD CLOT". ELEVATED BP NOTED. OTHER VSS. PT NPO FOR ANGIO TODAY. NOT OTHER ACUTE CHAGNES NOTED. WILL CONTINUE TO MONITOR.
--- NOTE | 2020-12-14 11:10 | NUR ---
THIS RN ENTERED PT'S ROOM AT APROX 1110 TO PREFORM A PRE-PROCEDURE COVID SCREEN PER MD ORDERS. PT APPEARED TO BE SLEEPING AT THAT TIME. PT WAS DIFFICULT TO AWAKEN AND DID NOT RESPOND VERBALLY WHEN COVID SWAB PROCEDURE WAS EXPLAINED. SWAB WAS PERFORMED AND PT DID NOT SEEM TO RESPOND TO THAT DISCOMFORT. PT WAS COMPLETELY NON-VERBAL AT THIS TIME. PT WAS MOVING HIS LEFT ARM AND LEG, JERKING MOVEMENTS WERE NOTED TO HIS LUE, LLE AND RLE. RUE WAS NOT MOVING. PT HAD A LEFT SIDED GAZE, SLIGHT LEFT SIDED FACIAL DROOP AND WAS INATTENTIVE TO HIS RIGHT SIDE. PT WAS ABLE TO SQUEEZE HIS FINGERS ON THE LEFT SIDE BUT DID NOT FOLLOW COMMANDS ON THE RIGHT. PT'S PRIMARY NURSE, GABRIEL WAS CALLED TO BEDSIDE TO EVALUATE. AT THIS TIME PT'S SP02 WAS NOTED TO BE DROPPING TO 77%. NRB MASK @ 10L PLACED WITH SP02 RISING INTO THE 9O'S. MD WAS CONTACTED BY PRIMARY RN AND PT WAS TAKEN TO STAT CT SCAN AND THEN ICU 12.
[2020-12-14 12:01] LABS: PCO2 Arterial 47.7 mmHg (35-45); PO2 Arterial 120 mmHg (80-100); pH Blood Arterial 7.31 (7.35-7.45)
--- NOTE | 2020-12-14 12:07 | NUR ---
AT 1115 THIS RN WAS NOTIFIED BY THAD WHITE OF CONCERN FOR POSSIBLE STROKE. THIS RN TO SEE PT, PT GAZE TO LEFT, NOT TRACKING, PUPILS EQUAL AND REACTIVE, PT NOT RESPONDING TO STIMULI, RUE FLACCID, RLE NO PURPOSEFUL MOVEMENT, BLE TWITCHING. BP ELEVATED, PT PLACED ON NONREBREATHER FOR RESP EFFORT AND DESATURATION. NOTIFIED DR PEREZ, NEW ORDER TO STOP HEPARIN, STAT CT OF HEAD AND STAT ABG. CBG 101. DR CLEMENTS TO BEDSIDE, NEW ORDERS FOR ICU TRANSFER AFTER CT AND STAT ECHO. PT TRANSFERING TO ROOM ICU [address] BEDSIDE REPORT GIVEN TO THAD BOYCE ASSUMING CARE OF PT.
[2020-12-14 12:48] LABS: Influenza A, PCR NEGATIVE (NEGATIVE); Influenza B, PCR NEGATIVE (NEGATIVE); Resp Syncytial Virus, PCR NEGATIVE (NEGATIVE); SARS-Cov-2 (COVID-19) PCR, MMC NEGATIVE (NEGATIVE)
--- NOTE | 2020-12-14 12:48 | NUR ---
Stat echocardiogram performed.
[2020-12-14 13:01] LABS: Source, Urine Catheter
[2020-12-14 13:05] LABS: Appearance, Urine Clear (Clear); Bilirubin, Urine Neg (Neg); Blood, Urine Neg (Neg); Color, Urine Yellow (P-Yellow); Glucose Qualitative, Urine Neg (Neg); Ketones, Urine Neg (Neg); Leukocyte Esterase, Urine Neg (Neg); Nitrite, Urine Neg (Neg); Protein, Urine 3+ (Neg); Urobilinogen, Urine NORM (Normal)
[2020-12-14 13:18] LABS: Red Blood Cells, Urine 0-2 /hpf (0-2); White Blood Cells, Urine 0-2 /hpf (0-5)
[2020-12-14 13:19] LABS: Bacteria Few /hpf; Squamous Epithelial Cells Rare /hpf (Few)
[2020-12-14 13:31] LABS: PCO2 Arterial 43.6 mmHg (35-45); PO2 Arterial 97.7 mmHg (80-100); pH Blood Arterial 7.34 (7.35-7.45)
--- NOTE | 2020-12-14 14:35 | NUR ---
Received in room report from Maribeth ONEIL at 1145 bwsneha simon arrived. . Assessed patient and he was moving left upper and lower extremities. He had brachial and acuillary bounding pulses. Right upper and lower extremity gross movemnent Visual list to left side when calling his name. He has no gag reflex. talked with Dr Pitt and she has arranged transfer to [facility] ER for thrombectomy. Dr Ojeda came back and intubated with 8.0ET and 26 cm to teeth with vent [id number]/500/50%/5 with sats 98%. Placed 16Fr temp palencia and then OG. Patient is on Propofol at 50 mcg/kg/min and NS at 50 ml/hr. Called [facility] and they arrived 1338 and left at 1552 for [facility]. Called report to Evgeny ONEIL at [facility].
== END 2020-12-14 13:50 | disposition short-term general hospital (02) | DRG 682 ==
LOC: ER 13:16 → ERHOLD 15:57 → PCU 15:57 → ICUW 12-14 11:40
PROVIDERS: Emergency Medicine; Internal Medicine Critical Care Medicine; Internal Medicine Nephrology; Pharmacist; Radiology Diagnostic Radiology; ADMIT Family Medicine
PROC: 0BH17EZ Insertion of Endotracheal Airway into Trachea, Via Natural or Artificial Opening (ICD-10-PCS; principal; 2020-12-14)
PROC: 5A1935Z Respiratory Ventilation, Less than 24 Consecutive Hours (ICD-10-PCS; 2020-12-14)
DX: N17.9 Acute kidney failure, unspecified (principal); I50.31 Acute diastolic (congestive) heart failure; I63.512 Cerebral infarction due to unspecified occlusion or stenosis of left middle cerebral artery; I13.0 Hypertensive heart and chronic kidney disease with heart failure and stage 1 through stage 4 chronic kidney disease, or unspecified chronic kidney disease; I24.8 Other forms of acute ischemic heart disease; E87.2 Acidosis; I74.2 Embolism and thrombosis of arteries of the upper extremities; Z20.822 Contact with and (suspected) exposure to COVID-19; D63.1 Anemia in chronic kidney disease; N18.30 Chronic kidney disease, stage 3 unspecified; F32.9 Major depressive disorder, single episode, unspecified; D50.9 Iron deficiency anemia, unspecified; J44.9 Chronic obstructive pulmonary disease, unspecified; E11.22 Type 2 diabetes mellitus with diabetic chronic kidney disease; M19.90 Unspecified osteoarthritis, unspecified site; E11.649 Type 2 diabetes mellitus with hypoglycemia without coma; R00.1 Bradycardia, unspecified; G25.81 Restless legs syndrome; E78.5 Hyperlipidemia, unspecified; E11.40 Type 2 diabetes mellitus with diabetic neuropathy, unspecified; H35.30 Unspecified macular degeneration; Z96.653 Presence of artificial knee joint, bilateral; Z87.19 Personal history of other diseases of the digestive system; Z85.46 Personal history of malignant neoplasm of prostate; Z79.899 Other long term (current) drug therapy
CPT/HCPCS: 0241U; 31500; 36415; 36600; 51702; 70450; 71045; 76770; 80069; 81001; 82607; 82728; 82746; 82803; 82947; 83540; 83550; 83735; 83880; 84439; 84443; 84484; 85014; 85018; 85025; 85610; 85730; 86850; 86900; 86901; 93005; 93010; 93308; 93321; 93931; 93971; 94002; 94640; 94760; 94762; 96360; 96361; 99285-25; A9270; J0360; J0881; J1644; J1815; J2704; J2916; J3010; J7030